=== PATIENT | female | born 1965 | race Caucasian/White ===

== ENCOUNTER 2018-04-17 23:05 | Emergency (ER) | payer BC ==
[2018-04-17 23:13] VITALS: BP 124/93; PULSE 100; TEMP 99.3; BMI 25.8
--- NOTE | 2018-04-17 23:17 | PDOC ---
History of Present Illness - General Chief Complaint: Nausea Stated Complaint: MALAISE Time Seen by Provider: 04/17/18 23:07 - History of Present Illness Initial Comments: 04/17/18 23:35 This 52-year-old woman without significant past medical history presents with several hour history of nausea/vomiting/malaise. Patient was traveling back from [place] by car (had been visiting [facility] the last day) when symptoms began. Patient vomited 3 times (partially digested food without blood or coffee grounds) over the last 6 hours. Prior to the nausea/vomiting, patient had onset of muscle aches and malaise. No known sick contacts. No diarrhea,fever/chills. Patient returned 1 week ago from two-week cruise. Patient's health was good during the cruise. Patient is a smoker (few cigarettes per day); no history of substance abuse On no medications No known ALLERGIES Past History - Past Medical History Allergies/Adverse Reactions: Allergies Allergy/AdvReac Type Severity Reaction Status Date / Time No Known Allergies Allergy Unverified 04/17/18 23:08 Home Medications: Ambulatory Orders Ondansetron [Zofran Odt -] 4 mg SL TID PRN #10 od.tablet 04/18/18 COPD: No Other medical history: DENIES - Suicide/Smoking/Psychosocial Hx Smoking History: Never smoked Number of Cigarettes Smoked Daily: 4 Information on smoking cessation initiated: Yes Review of Systems - Review of Systems Able to Perform ROS?: Yes Comments:: 12 point review of systems is negative except for what is noted in the history of present illness *Physical Exam - Vital Signs Last Vital Signs Temp Pulse Resp BP Pulse Ox 99.3 F 100 H 16 124/93 100 04/17/18 23:08 04/17/18 23:08 04/17/18 23:08 04/17/18 23:08 04/17/18 23:08 - Physical Exam Comments: GENERAL: Adult female, alert and oriented 3, no acute distress; oral temperature 99.3F;pulse 100/min HEAD: Normal with no signs of trauma. EYES: PERRLA, EOMI, sclera anicteric, conjunctiva clear. ENT: Ears normal, nares patent, oropharynx clear without exudates. Dry mucous membranes. NECK: Normal range of motion, supple without lymphadenopathy, JVD, or masses. LUNGS: Breath sounds equal, clear to auscultation bilaterally. No wheezes, and no crackles. HEART:Regular rate and rhythm, normal S1 and S2 without murmur, rub or gallop. ABDOMEN:.normal bowel sounds No guarding,tenderness or rebound.No masses No distention. EXTREMITIES: Normal range of motion, no edema. No clubbing or cyanosis. No erythema, or tenderness. NEUROLOGICAL: Cranial nerves II through XII grossly intact. Normal speech. No focal neurological deficits. MUSCULOSKELETAL: Back non-tender to palpation, no CVA tenderness SKIN: Warm, Dry, normal turgor, no rashes or lesions noted. ED Treatment Course - LABORATORY CBC & Chemistry Diagram: 04/17/18 23:40 04/17/18 23:40 Medical Decision Making - Medical Decision Making As noted above, this 52-year-old woman presents with several hour history of nausea/vomiting/malaise. No diarrhea has occurred. She has returned from a cruise about 1 week ago; she was well during the vacation. No clear history of ingestion of possibly contaminated food. Exam as noted with patient appearing clinically dehydrated. Patient received 1 L normal saline IV hydration; she also received Zofran 4 mg IV and Toradol 30 mg IV for her myalgias. Chemistry profile and CBC evaluated. Lab work is essentially normal except for evidence of moderate prerenal azotemia (BUN 19/creatinine 0.9). After IV hydration and medications, patient feels significantly better. She is able to tolerate water by mouth without nausea or vomiting. The patient will be discharged with instructions to maintain clear liquid diet and advance to solid foods very cautiously. She is scheduled to work over the next 2 days and will be given work documentation to stay home. She should return to the ER if she has recurrent vomiting or develops high fever/abdominal pain. She should follow-up with her own doctor within the next 5 days *DC/Admit/Observation/Transfer Diagnosis at time of Disposition: Gastroenteritis - Discharge Dispostion Disposition: HOME Condition at time of disposition: Stable - Prescriptions Prescriptions: Ondansetron [Zofran Odt -] 4 mg SL TID PRN #10 od.tablet PRN Reason: Nausea - Referrals - Patient Instructions Printed Discharge Instructions: DI for Viral Gastroenteritis -- Adult Additional Instructions: clear liquids, advance diet slowly Zofran ODT 4mg up to 3 times a day for nausea no work until Friday, 04/20 return to ER if you have vomiting/increased abdominal pain/fever follwup with your doctor within 5 days - Post Discharge Activity Forms/Work/School Notes: Back to Work
[2018-04-17] MEDS ORDERED: ONDANSETRON 4 MG/2 ML VIAL IVPUSH ONE (23:30)
[2018-04-17] MEDS ORDERED: KETOROLAC TROMETHAMINE 30 MG/1 ML VIAL IVPUSH ONE (23:30)
[2018-04-17] MEDS ORDERED: SODIUM CHLORIDE 1,000 ML IV STA (23:30)
[2018-04-17] MEDS ORDERED: ONDANSETRON 4 MG/2 ML VIAL ONE (23:37)
[2018-04-17] MEDS ORDERED: KETOROLAC TROMETHAMINE 30 MG/1 ML VIAL ONE (23:37)
[2018-04-18 00:49] LABS: BASO % 0.1 % (0-2.0); EOS % 0.2 % (0-4.5); HEMATOCRIT 39.8 % (32.4-45.2); HEMOGLOBIN 13.7 GM/dL (10.7-15.3); LYMPH % 7.3 % (8-40); MCH 33.6 pg (25.7-33.7); MCHC 34.6 g/dl (32.0-36.0); MEAN CELL VOLUME 97.2 fl (80-96); MEAN PLT VOLUME 9.6 fl (7.5-11.1); MONO % 3.1 % (3.8-10.2); NEUT % 89.3 % (42.8-82.8); PLATELET COUNT 230 K/MM3 (134-434); RBC 4.09 M/mm3 (3.60-5.2); RDW 13.7 % (11.6-15.6); WHITE BLOOD COUNT 9.7 K/mm3 (4.0-10.0)
[2018-04-18 01:24] LABS: ALBUMIN 4.3 g/dl (3.4-5.0); ALK PHOS 84 U/L (45-117); ANION GAP 11 MMOL/L (8-16); BILIRUBIN,TOTAL 0.6 mg/dL (0.2-1); BLOOD UREA NITROGEN 19 mg/dL (7-18); CALCIUM 9.2 mg/dL (8.5-10.1); CHLORIDE 105 mmol/L (98-107); CO2 24 mmol/L (21-32); CREATININE 0.9 mg/dL (0.55-1.3); GLUCOSE,RANDOM 116 mg/dL (74-106); LIPASE 283 U/L (73-393); POTASSIUM 4.1 mmol/L (3.5-5.1); SGOT/AST 36 U/L (15-37); SGPT/ALT 45 U/L (13-61); SODIUM 140 mmol/L (136-145); TOT PROT 7.9 g/dl (6.4-8.2)
== END 2018-04-18 01:38 | disposition home or self-care (01) ==
LOC: FER 23:05
PROC: 3E0333Z Introduction of Anti-inflammatory into Peripheral Vein, Percutaneous Approach (ICD-10-PCS; principal; 2018-04-17)
PROC: 3E0337Z Introduction of Electrolytic and Water Balance Substance into Peripheral Vein, Percutaneous Approach (ICD-10-PCS; 2018-04-17)
PROC: 3E033GC Introduction of Other Therapeutic Substance into Peripheral Vein, Percutaneous Approach (ICD-10-PCS; 2018-04-17)
DX: K52.9 Noninfective gastroenteritis and colitis, unspecified (principal)
CPT/HCPCS: 36415; 80053; 83690; 85025; 99282-25; J7030